=== PATIENT | female | born 1995 | race Caucasian/White ===

== ENCOUNTER 2021-02-07 14:33 | Outpatient (CLI) | payer OTHER ==
--- NOTE | 2021-02-07 17:14 | MRI Report ---
PROCEDURE: Shoulder RT W/O INDICATIONS: CERVICALGIA TECHNIQUE: Noncontrast oblique coronal T2 fast spin echo with fat saturation, oblique sagittal T1 spin echo and T2 fast spin echo with fat saturation, axial T1 spin echo and T2 fast spin echo with fat saturation t hrough the shoulder. COMPARISON: None. FINDINGS: Image quality: Excellent. Rotator cuff: Tendinosis and low-grade articular and bursal surface partial-thickness tear involving distal supraspinatus at its insertion on humeral head is seen extending to musculotendinous junction. There is distal infraspinatus and subscapularis tendinosis. No full-thickness rotator cuff tendon ru pture.. No rotator cuff muscle atrophy on sagittal images. Bones and bursae: No bone marrow contusions or fractures. No acromioclavicular joint degeneration. The acromion demonstrates conventional anatomy, without an os acromiale. No pathologic subacromial/ subdeltoid bursal fluid is present. Capsule and soft tissues: In the absence of intra-articular contrast, the labrum and glenohumeral li gaments appear intact. The long head of the biceps tendon demonstrates normal location and morpholog y. The rotator interval appears normal, without fibrosis. The coracohumeral ligament is normal in t hickness. IMPRESSION: 1. Tendinosis and low-grade articular and bursal surface partial-thickness tear involving distal supr aspinatus extending to musculotendinous junction. Distal infraspinatus and subscapularis tendinosis. No full-thickness rotator cuff tendon rupture. 2. No marrow edema. No fracture or dislocation. Joint spaces are well preserved. 3. No gross focal labral tear. Reviewed by: Mal Donovan MD on 02/07/2021 5:13 PM PDT Approved by: Mal Donovan MD on 02/07/2021 5:13 PM PDT Station ID: [id number]
== END 2021-02-07 14:34 | disposition home or self-care (01) ==
LOC: DI 14:33
PROVIDERS: ATTEND Family Medicine
DX: M54.2 Cervicalgia (principal); M75.111 Incomplete rotator cuff tear or rupture of right shoulder, not specified as traumatic